=== PATIENT | male | born 1975 | race Caucasian/White ===

== ENCOUNTER → 2022-03-16 | Day surgery (SDC) | payer OTHER ==
[~2022-03-16] VITALS: Ht 172.7 cm; Wt 95.2 kg
[~2022-03-16] MED LIST: ADVAIR HFA 115-28 GM INH; ASPIRIN EC81 MG PO; CETIRIZINE HCL10 M1 PO; COLESTID1 GM PO; DULCOLAX5 M1 PO; DULERA 100 MCG8.8 GM INH; HCTZ25 MG PO; LAMICTAL100 MG PO; METFORMIN HCL500 MG PO; MOTRIN600 MG PO; SERTRALINE HCL25 MG PO; SINGULAIR10 MG PO; VITAMIN D31250 MCG PO
[2022-03-16 10:47] LABS: BASOPHIL 0.7 % (0-2); EOSINOPHIL 1.7 % (0-5); HCT 44.4 % (42.0-52.0); HGB 14.7 g/dl (13.2-18.0); LYMPHOCYTE 16.4 % (15-48); MCH 31.7 pg (25.0-31.0); MCHC 33.1 g/dL (32.0-36.0); MCV 95.7 fL (78.0-100.0); MONOCYTE 9.5 % (0-12); NEUTROPHIL 70.8 % (41-80); NRBC 0; PLT 335 K/uL (150-400); RBC 4.64 M/uL (4.70-6.00); RDW 13.2 % (11.5-14.0); WBC 14.8 K/uL (4.0-10.5)
[2022-03-16 11:19] LABS: ALBUMIN 3.3 g/dL (3.4-5.0); BILIRUBIN - TOTAL 0.1 mg/dL (0.2-1.0); BUN/CREAT RATIO (CALC) 8.4 RATIO; CREATININE 0.83 mg/dL (0.67-1.17); GLOBULIN (CALCULATION) 3.7 g/dL; POTASSIUM 4.1 mmol/L (3.5-5.1)
== END | disposition home or self-care (01) ==
LOC: FAS 09:33
PROVIDERS: Oral & Maxillofacial Surgery
DX: K02.9 Dental caries, unspecified (principal); K04.7 Periapical abscess without sinus; E11.9 Type 2 diabetes mellitus without complications; F09 Unspecified mental disorder due to known physiological condition; J44.9 Chronic obstructive pulmonary disease, unspecified; Z88.8 Allergy status to other drugs, medicaments and biological substances; Z91.040 Latex allergy status; Z20.822 Contact with and (suspected) exposure to COVID-19
CPT/HCPCS: D7140; D7210; D7310; 36415; 80053; 85025; 93005; J1100; J2250; J2405; J2704; J3010; J7120